=== PATIENT | female | born 1985 | race Caucasian/White ===

== ENCOUNTER 2025-05-31 18:37 | Emergency (ER) | payer OTHER, SELFPAY ==
[2025-05-31 18:39] VITALS: BP 164/101
--- NOTE | 2025-05-31 21:16 | ED.GENMED ---
History of Present Illness
General
Chief Complaint: Musculo-Skeletal Complaint
Source: patient
Exam Limitations: none
Time Seen by Provider: 05/31/25 20:56
Nursing documentation reviewed up to this point in time: agreed with
History of Present Illness
History of Present Illness:
40-year-old female with a past medical history of IV drug abuse on methadone presents to the emergency department today with concerns of bilateral jaw pain which she attributes to teeth grinding. This pain has been going on for approximately 10
days. She visited urgent care on Wednesday where she is prescribed Flexeril. This seemed to help but then the pain worsened. She r massage to the area eports that she started to on the left side vigorously to see if that would help with the symptoms
but this provided her no relief. She does not start to notice palpable 'bubbles' on her left anterior neck/left submandibular area. She describes this region as painful. She also reports pain with swallowing. She also reports some mild pain with
turning her neck. She denies any dental pain. She denies any recent dental infection. She is recommended by her dentist to use a retainer for clenching but she feels like this has not helped. She was told by urgent care and her primary to visit
the ER if symptoms do not improve. Patient denies any ear pain, drainage from ears, pain behind the ears. Of note, the patient recently started Augmentin for concern for sinusitis. She had 1 dose of this this evening. She denies any recent head
or neck trauma.
Past History
Past History
ED Past Medical History: None
ED Past Surgical History:
Social History
Drug: Former user, Narcotics and IVDA
Living: with family
Employment: Employed
Review of Systems
Review of Systems
All Other Systems: ROS reviewed and negative except as documented in HPI and ROS
Phy Exam
Physical Exam
Physical Exam:
General: Patient is well appearing and in no acute distress; non-toxic
Skin: Warm and dry, no rashes or lesions
Head: Normocephalic, atraumatic
Eyes: Sclera non-icteric. EOMs intact.
Neck: Posterior pharynx mildly erythematous, uvula midline, left submandibular swelling noted, mild swelling noted to the left anterior with mild erythema. Patient managing her airway
Cardiac: Regular rate and rhythm, no murmurs
Peripheral Vascular: No lower extremity swelling or edema
Pulm: Normal respiratory effort, no wheezes, rales, rhonchi
Abdomen: No abdominal tenderness to palpation
Musculoskeletal: Full range of motion of the cervical spine
Neuro: CN II-XII intact, no focal neurologic deficits.
Psychiatric: Appropriate mood and affect.
Course
Orders/Labs/Results
Orders:
Orders
05/31/25 21:26
Electrocardiogram (*1) Urgent
Reason for Study: Other
Other Reason for Exam: jaw pain
EKG- Treatment ONCE
Ketorolac [Toradol] 15 mg IV NOW STA
05/31/25 21:36
CT Neck With Iv Contrast Urgent
Comment:
Reason For Exam: left anterior neck pain, dysphagia
05/31/25 22:20
Basic Metabolic Panel Urgent
Comment: NO K
Complete Blood Count/With Diff Urgent
TSH Reflex To Free T4 Urgent
Troponin I Urgent
05/31/25 22:56
Add On- LAB Urgent
Tests Added?: TSH reflex T4
Abnormal Lab Results
05/31/25
22:20
RBC 3.75 L 10^6/uL
(4.20-5.40)
Hgb 11.7 L g/dL
(12.0-16.0)
Hct 33.8 L %
(37.0-47.0)
MCH 31.2 H pg
(27.0-31.0)
Absolute Neuts (auto) 7.1 H 10^3/uL
(1.4-6.5)
Sodium 132 L mmol/L
(135-145)
Creatinine 0.4 L mg/dL
(0.6-1.0)
05/31/25 22:20
05/31/25 22:20
Vital Signs
Initial and Last Documented VS:
Initial Vital Signs
Temp Pulse Resp BP Pulse Ox
98.4 F 91 16 164/101 100
05/31/25 18:39 05/31/25 18:39 05/31/25 18:39 05/31/25 18:39 05/31/25 18:39
Last Documented Vital Signs
Temp Pulse Resp BP Pulse Ox
98.4 F 70 18 141/88 99
05/31/25 18:39 05/31/25 23:31 05/31/25 23:31 05/31/25 23:31 05/31/25 23:31
MDM/Problems Addressed
Differential Diagnosis Includes:
Differentials include TMJ, parotitis, deep space neck infection, sialolith tinnitus, ACS, lymphadenopathy, dental infection, submandibular abscess, osteomyelitis of the jaw
MDM/Problems Addressed:
50-year-old female presents emergency department today with concerns of increasing bilateral jaw pain. She does have a history of bruxism which she uses a retainer for intermittently. She reports that she is dislodging the left side of her jaw and
underneath the left side of her face when the pain got worse and she started noticed swelling under the left submandibular region. She has no fevers or chills. Of note she also started Augmentin recently for sinus infection. On physical exam,
there is some swelling on the left side of her anterior neck noted. She has full range of motion of her neck and her airway is intact. She has mild posterior pharyngeal erythema. Blood work reviewed and generally unremarkable. Troponin
undetectable. ECG shows no signs of ischemia.
I did send patient for CT scan to rule out deep space infection of the neck which showed no evidence of infection or abscess but did show left submandibular lymphadenopathy. Suspect this is reactive from intense massaging of the area versus
reactive from pharyngitis or viral infection. There is also noted to be moderate right maxillary mucosal thickening. Also noted to be mild stranding anterior to the thyroid which may represent mild thyroiditis or soft tissue contusion. Discussed
these findings with patient. Patient states that she is currently being worked up for possible hypothyroidism. She reports that she may start treatment soon. Advised patient to let her PCP know of these findings on CAT scan. Suspect TMJ versus
persistent viral pharyngitis with reactive lymphadenopathy. Will start patient on a short course of prednisone. Stressed follow-up with primary as well as ENT evaluation. Patient stable for discharge.
Chronic conditions affecting care:
Distant history of IV drug use, bruxism
*Pulse Oximetry
SaO2: 100
Oxygen Mode of Delivery: Room air
Patient hypoxic: no
*Critical Care Note
Total Time (30-74mins, 75-104mins- exclusive of procedures): Not Applicable
Data Reviewed
Review of Other/Old Records Reveals: Records (Reviewed ER physician recommendation from 12/12/2012 patient seen for lump of the breast, no discharge summary in [facility] to review)
ED Attending Note
-
Portions of this chart may have been created with voice recognition software.� Occasional wrong word or��sound alike� substitutions may have occurred due to the inherent limitations of voice recognition software.
Discharge Plan
Departure
Patient Disposition: Home (Routine Discharge)
Date of Disposition: 05/31/25
Time of Disposition: 23:32
Patient with high blood pressure during this ER visit?: Yes
Condition: Good
Discharge Problem:
Lymphadenopathy, submandibular, Bilateral temporomandibular joint pain-dysfunction syndrome
Instructions: Temporomandibular joint (TMJ) disorders, Swollen lymph nodes in adults
Prescriptions:
New
prednisone 20 mg tablet
40 mg PO DAILY 5 Days Qty: 10 0RF
No Action
methadone [Methadose] 100 MG/10 ML concentrate
100 mg PO DAILY
sulfamethoxazole-trimethoprim 1 TABLET tablet
1 tab PO BID Qty: 14 0RF
cephalexin 500 MG capsule
500 mg PO BID Qty: 14 0RF
sulfamethoxazole-trimethoprim 800 MG/160 MG tablet
1 tab PO BID Qty: 20 0RF
cephalexin 500 MG capsule
500 mg PO TID Qty: 30 0RF
Referrals:
Trell Motta MD [Active, Otology] - Call in 1-3 days for appt
UNKNOWN - PT DOES,NOT KNOW [Unknown Provider]
Activity Restrictions/Additional Instructions:
Please continue the amoxicillin. Prednisone has been sent to your pharmacy. You can take 40 mg once daily for 5 days. Please call attached number to schedule follow-up appointment with ENT. Please continue to follow-up regarding your thyroid
function with your primary.
PLEASE RETURN TO THE ER SHOULD YOU DEVELOP ANY ACUTE WORSENING OF YOUR SYMPTOMS, PERSISTENT FEVERS OR CHILLS, CHEST PAIN, SHORTNESS OF BREATH, LIGHTHEADEDNESS, DIZZINESS, INTRACTABLE NAUSEA OR VOMITING, OR ANY OTHER SIGNS OR SYMPTOMS CONCERNING TO
YOU.
Interventions
Interventions:
*Risk Screen - Suicide Last Done: 05/31/25 18:41
*Neglect/Abuse Screening Last Done: 05/31/25 18:41
*Nursing Disposition Last Done: 05/31/25 23:38
ED-Musculoskeletal Assessment Last Done: 05/31/25 20:45
Discharge Date and Time
Discharge Date/Time: 05/31/25 23:38
Print Language: BULGARIAN
[2025-05-31] MEDS: TORADOL 15 MG IV (22:21)
[2025-05-31 22:22] VITALS: BP 135/71
[2025-05-31 22:30] LABS: Hematocrit 33.8 % (37.0-47.0); Hemoglobin 11.7 g/dL (12.0-16.0); Mean Corp Hgb Conc. 34.6 g/dL (33.0-37.0); Mean Corpuscular Volume 90.1 fL (81.0-99.0); Nucleated Red Blood Cells % 0 %; Platelet Count 298 10^3/uL (130-400); Red Cell Dist. Width 13.8 % (11.5-14.5)
[2025-05-31 22:52] LABS: Blood Urea Nitrogen 9 mg/dl (7-17); Calcium 8.8 mg/dl (8.4-10.2); Carbon Dioxide 25 mmol/L (22-30); Chloride 104 mmol/L (98-107); Glucose 95 mg/dl (70-99); Sodium 132 mmol/L (135-145); eGFR > 60.00
[2025-05-31 23:00] LABS: Troponin I < 0.012 ng/ml
[2025-05-31 23:31] VITALS: BP 141/88
== END 2025-05-31 23:38 | disposition home or self-care (01) ==
LOC: EMR 18:37
PROVIDERS: Physician Assistant; EMERGENCY PHYSICIAN Emergency Medicine; FAMILY PHYSICIAN Physician Assistant Medical
DX: R59.0 Localized enlarged lymph nodes (principal); M26.603 Bilateral temporomandibular joint disorder, unspecified; R03.0 Elevated blood-pressure reading, without diagnosis of hypertension
CPT/HCPCS: 99284; 96374; 70491; 80048; 84443; 84484; 85025; 93005; Q9967